=== PATIENT | female | born 1960 | race Caucasian/White ===

== ENCOUNTER 2017-01-12 23:03 | Observation (INO) | payer BC ==
[2017-01-13] MEDS ORDERED: Diltiazem IV* 5 MG/ML 5 ML VIAL (for loading dose/IV Push) (25 MG) IV PUSH ONE (00:26)
[2017-01-13] MEDS ORDERED: Diltiazem IV VIAL* 125 MG in D5W 100 ML BAG* 100 ML IV ONE (00:28)
[2017-01-13] MEDS ORDERED: Diltiazem DRIP* 100 MG/100 ML ADDV.BAG IVPB ONE (00:55)
[2017-01-13] MEDS: NS 0.9% 1000 ML* 1,000 ML IV ONE ×2 (00:59→01:34)
[2017-01-13 01:10] LABS: Hematocrit 42 % (35-47); Hemoglobin 14.2 g/dl (12.0-16.0); Mean Corpuscular HGB Conc 34 g/dl (31-36); Mean Corpuscular Hemoglobin 29 pg (27-31); Mean Corpuscular Volume 87 fL (80-97); Mean Platelet Volume 9 um3 (7.4-10.4); Red Blood Count 4.85 10^6/ul (4.0-5.4); Red Cell Distribution Width 14 % (10.5-15); White Blood Count 6.6 10^3/ul (3.5-10.8)
[2017-01-13 01:22] LABS: Albumin 4.1 g/dL (3.2-5.2); BUN/Creatinine Ratio 29.9 (8-20); Calcium 9.1 mg/dL (8.6-10.3); EGFR African American 86.9 (>60); EGFR Non-African American 67.6 (>60); Globulin 2.7 g/dL (2-4); Magnesium 2.2 mg/dL (1.9-2.7); Potassium 3.8 mmol/L (3.5-5.0); Total Bilirubin 0.5 mg/dL (0.2-1.0); Total Protein 6.8 g/dL (6.4-8.9)
[2017-01-13] MEDS ORDERED: Aspirin Low Dose CHEW TAB* 81 MG PO ONE (01:27)
[2017-01-13] MEDS ORDERED: Aspirin Low Dose CHEW TAB* 81 MG ONE (01:28)
[2017-01-13 01:32] LABS: TSH (Thyroid Stimulating Horm) 0.24 mcIU/mL (0.34-5.60)
[2017-01-13] MEDS ORDERED: NS 0.9% 1000 ML* 1,000 ML IV ONE (01:39)
[2017-01-13] MEDS ORDERED: Amiodarone 360 MG IVPREMIX* 360 MG/200 ML BAG IV ONE ×2 (01:40→08:46)
[2017-01-13] MEDS ORDERED: Amiodarone 150 MG IVPREMIX* 150 MG/100 ML BAG IV ONE (01:40)
[2017-01-13] MEDS: NS 0.9% 1000 ML* 1,000 ML IV SCH ×2 (02:33→15:04)
[2017-01-13] MEDS: Enoxaparin(*) 80 MG/0.8 ML SYR SUBCUT SCH ×2 (03:03→15:09)
[2017-01-13] MEDS: Levothyroxine TAB* 100 MCG TAB PO SCH (06:02)
--- NOTE | 2017-01-13 07:50 | RAD ---
INDICATION: Short of breath. Pneumonia. COMPARISON: November 28, 2012 TECHNIQUE: An AP portable view obtained at 0033 hours is submitted. FINDINGS: Bones/Soft Tissues: There are no acute bony findings. Cardiomediastinal: The cardiomediastinal silhouette is normal. Lungs: There are no infiltrates. Pleura: There are no pleural effusions. Other: None IMPRESSION: NO ACTIVE DISEASE.
--- NOTE | 2017-01-13 07:56 | ED ---
Oswald Mercado Rebecca, scribed for Edwin Paige MD on 01/13/17 at 0022 . Palpitations / Dysrhythmia - HPI Summary HPI Summary: Pt is a 56 y/o F who presents to ED c/o palpitations. Sx began tonight at approximately 2220 while cleaning and are characterized as fast. Sx aggravated and alleviated by nothing. Additionally c/o lightheadedness that has been present for multiple years and worsened yesterday. Denies CP, SOB, fever, chills. Negative LOC. Reports prior similar episodes of symptoms, though she never attributed it to A Fib. PMHx mitral valve leak. Has an echocardiogram done annually by Dr. Liriano - last one was in February (10 months ago). - History of Current Complaint Chief Complaint: EDDysrhythmPalp Time Seen by Provider: 01/13/17 00:13 Hx Obtained From: Patient Onset/Duration: Still Present Character: Fast Aggravating: Nothing Alleviating: Nothing Associated Signs & Symptoms: Lightheadedness Related History: Similar Episode/Dx as - Prior instances of symptoms without calling it a Fib - Allergy/Home Medications Allergies/Adverse Reactions: Allergies Allergy/AdvReac Type Severity Reaction Status Date / Time Ampicillin Allergy Intermediate See Comment Verified 03/19/15 09:28 Clindamycin AdvReac Mild Diarrhea Verified 03/19/15 09:28 PMH/Surg Hx/FS Hx/Imm Hx Endocrine/Hematology History: Reports: Hx Thyroid Disease Denies: Hx Diabetes, Hx Systemic Lupus Erythematosus Cardiovascular History: Reports: Hx Hypercholesterolemia, Hx Hypertension - NOT ON MEDICATION, Hx Valvular Heart Disease - mitral valve disease., Other Cardiovascular Problems/Disorders - mitral valve leak Denies: Hx Angina, Hx Congestive Heart Failure, Hx Coronary Artery Disease, Hx Myocardial Infarction, Hx Pacemaker/ICD Respiratory History: Reports: Hx Sleep Apnea - SNORES THINKS SHE HAS SLEEP APNEA -NO DX.MADE YET Denies: Hx Asthma, Hx Chronic Obstructive Pulmonary Disease (COPD) Comment Only: Other Respiratory Problems/Disorders - VITRAL VALVE LEAK GI History: Reports: Hx Hiatal Hernia Denies: Hx Ulcer History: Reports: Hx Kidney Infection - AGE 19, Other Problems/Disorders - Pain with urination Denies: Hx Dialysis, Hx Renal Disease Musculoskeletal History: Reports: Other Musculoskeletal History - Back pain Denies: Hx Rheumatoid Arthritis Sensory History: Reports: Hx Contacts or Glasses Denies: Hx Hearing Aid Opthamlomology History: Reports: Hx Contacts or Glasses Psychiatric History: Denies: Hx Panic Disorder - Cancer History Hx Chemotherapy: No - Surgical History Surgery Procedure, Year, and Place: left ovary removed, appY;2 c-sections; VASCULAR - Lt LEG; AT AGE 5 UMBILICAL LESIONS THAT TWISTED HER SMALL INTESTINES. Hx Anesthesia Reactions: No - Immunization History Date of Tetanus Vaccine: Unk Date of Influenza Vaccine: Unk Infectious Disease History: No Infectious Disease History: Denies: Hx Clostridium Difficile, Hx Hepatitis, Hx Human Immunodeficiency Virus (HIV), Hx of Known/Suspected MRSA, Traveled Outside the [place] in Last 30 Days - Family History Known Family History: Positive: Other - Mitral valve leak (mother) - Social History Alcohol Use: None Substance Use Type: Reports: None Smoking Status (MU): Never Smoked Tobacco Review of Systems Negative: Fever, Chills Positive: Palpitations. Negative: Chest Pain Negative: Shortness Of Breath Neurological: Other - NEGATIVE: LOC All Other Systems Reviewed And Are Negative: Yes Physical Exam - Summary Physical Exam Summary: The patient is well-nourished in no acute distress and in no acute pain. The skin is warm and dry and skin color reflects adequate perfusion. HEENT: The head is normocephalic and atraumatic. The pupils are equal and reactive. The conjunctivae are clear and without drainage. Nares are patent and without drainage. Mouth reveals moist mucous membranes and the throat is without erythema and exudate. The external ears are intact. The ear canals are patent and without drainage. The tympanic membranes are intact. Neck is supple with full range of motion and non-tender. Respiratory: Chest is non-tender. Lungs are clear to auscultation and breath sounds are symmetrical and equal. Cardiovascular: Hear is tachycardic with an irregular rhythm. There is no murmur or rub auscultated. There is no peripheral edema and pulses are symmetrical and equal. Abdomen: The abdomen is soft and non-tender. There are normal bowel sounds heard in all four quadrants and there is no organomegaly palpated. Musculoskeletal: She has some CVA tenderness bilaterally. Extremities are non- tender with full range of motion. There is good capillary refill. There is no peripheral edema or calf tenderness elicited. Neurological: Patient is alert and oriented to person, place and time. The patient has symmetrical motor strength in all four extremities. Deep tendon reflexes are symmetrical and equal in all four extremities. Psychiatric: The patient has an appropriate affect and does not exhibit any anxiety or depression. Triage Information Reviewed: Yes Vital Signs On Initial Exam: Initial Vitals Temp Pulse Resp BP Pulse Ox 98.3 F 79 20 116/83 98 01/12/17 23:17 01/12/17 23:17 01/12/17 23:17 01/12/17 23:17 01/12/17 23:17 Vital Signs Reviewed: Yes Diagnostics - Vital Signs Vital Signs Temp Pulse Resp BP Pulse Ox 01/12/17 23:17 98.3 F 79 20 116/83 98 - Laboratory Lab Results: Lab Results 01/13/17 01/13/17 01/13/17 Range/Units 00:50 00:50 00:50 WBC 6.6 (3.5-10.8) 10^3/ul RBC 4.85 (4.0-5.4) 10^6/ul Hgb 14.2 (12.0-16.0) g/dl Hct 42 (35-47) % MCV 87 (80-97) fL MCH 29 (27-31) pg MCHC 34 (31-36) g/dl RDW 14 (10.5-15) % Plt Count 176 (150-450) 10^3/ul MPV 9 (7.4-10.4) um3 Neut % (Auto) 50.5 (38-83) % Lymph % (Auto) 34.3 (25-47) % Mcmullen % (Auto) 13.0 H (1-9) % Eos % (Auto) 1.8 (0-6) % Baso % (Auto) 0.4 (0-2) % Absolute Neuts (auto) 3.3 (1.5-7.7) 10^3/ul Absolute Lymphs (auto) 2.3 (1.0-4.8) 10^3/ul Absolute Monos (auto) 0.9 H (0-0.8) 10^3/ul Absolute Eos (auto) 0.1 (0-0.6) 10^3/ul Absolute Basos (auto) 0 (0-0.2) 10^3/ul Absolute Nucleated RBC 0 10^3/ul Nucleated RBC % 0 INR (Anticoag Therapy) (0.89-1.11) APTT (26.0-36.3) seconds Sodium 137 (133-145) mmol/L Potassium 3.8 (3.5-5.0) mmol/L Chloride 104 (101-111) mmol/L Carbon Dioxide 26 (22-32) mmol/L Anion Gap 7 (2-11) mmol/L BUN 26 H (6-24) mg/dL Creatinine 0.87 (0.51-0.95) mg/dL Est GFR ( Amer) 86.9 (>60) Est GFR (Non-Af Amer) 67.6 (>60) BUN/Creatinine Ratio 29.9 H (8-20) Glucose 101 H (70-100) mg/dL Lactic Acid 0.7 (0.5-2.0) mmol/L Calcium 9.1 (8.6-10.3) mg/dL Magnesium 2.2 (1.9-2.7) mg/dL Total Bilirubin 0.50 (0.2-1.0) mg/dL AST 14 (13-39) U/L ALT 14 (7-52) U/L Alkaline Phosphatase 68 (34-104) U/L Troponin I 0.00 (<0.04) ng/mL B-Natriuretic Peptide ( - 100) pg/mL Total Protein 6.8 (6.4-8.9) g/dL Albumin 4.1 (3.2-5.2) g/dL Globulin 2.7 (2-4) g/dL Albumin/Globulin Ratio 1.5 (1-3) TSH 0.24 L (0.34-5.60) mcIU/mL 01/13/17 01/13/17 Range/Units 00:50 00:50 WBC (3.5-10.8) 10^3/ul RBC (4.0-5.4) 10^6/ul Hgb (12.0-16.0) g/dl Hct (35-47) % MCV (80-97) fL MCH (27-31) pg MCHC (31-36) g/dl RDW (10.5-15) % Plt Count (150-450) 10^3/ul MPV (7.4-10.4) um3 Neut % (Auto) (38-83) % Lymph % (Auto) (25-47) % Mcmullen % (Auto) (1-9) % Eos % (Auto) (0-6) % Baso % (Auto) (0-2) % Absolute Neuts (auto) (1.5-7.7) 10^3/ul Absolute Lymphs (auto) (1.0-4.8) 10^3/ul Absolute Monos (auto) (0-0.8) 10^3/ul Absolute Eos (auto) (0-0.6) 10^3/ul Absolute Basos (auto) (0-0.2) 10^3/ul Absolute Nucleated RBC 10^3/ul Nucleated RBC % INR (Anticoag Therapy) 0.95 (0.89-1.11) APTT 28.4 (26.0-36.3) seconds Sodium (133-145) mmol/L Potassium (3.5-5.0) mmol/L Chloride (101-111) mmol/L Carbon Dioxide (22-32) mmol/L Anion Gap (2-11) mmol/L BUN (6-24) mg/dL Creatinine (0.51-0.95) mg/dL Est GFR ( Amer) (>60) Est GFR (Non-Af Amer) (>60) BUN/Creatinine Ratio (8-20) Glucose (70-100) mg/dL Lactic Acid (0.5-2.0) mmol/L Calcium (8.6-10.3) mg/dL Magnesium (1.9-2.7) mg/dL Total Bilirubin (0.2-1.0) mg/dL AST (13-39) U/L ALT (7-52) U/L Alkaline Phosphatase (34-104) U/L Troponin I (<0.04) ng/mL B-Natriuretic Peptide 43 ( - 100) pg/mL Total Protein (6.4-8.9) g/dL Albumin (3.2-5.2) g/dL Globulin (2-4) g/dL Albumin/Globulin Ratio (1-3) TSH (0.34-5.60) mcIU/mL Result Diagrams: 01/13/17 00:50 01/13/17 00:50 Lab Statement: Any lab studies that have been ordered have been reviewed, and results considered in the medical decision making process. - Radiology CXR Xray Interpretation: No Acute Changes - No abnormality, effusions, failure or PNA. Heart size is normal. Radiology Interpretation Completed By: ED Physician - EKG 2325 Cardiac Rate: Tachycardia - 164 bpm EKG Rhythm: Atrial Fibrillation - with RVR ST Segment: Non-Specific - ST depressions 0127 Cardiac Rate: Tachycardia - 146 EKG Rhythm: Atrial Fibrillation - Rate 146 EKG Interpretation: Normal axis, no STEMI EKG Comparison: Other - ST depressions have improved from prior EKG this visit and there is a decreas in rate Re-Evaluation - Re-Evaluation First Eval Re-Evaluation Time: 01:26 Change: Worse Comment: Pt now c/o CP. She will be given ASA and have an EKG done. Course/Dx - Course Assessment/Plan: Pt is a 56 y/o F who presents to ED c/o palpitations. Sx began tonight at approximately 2220 while cleaning and are characterized as fast. Sx aggravated and alleviated by nothing. Additionally c/o lightheadedness that has been present for multiple years and worsened yesterday. Denies CP, SOB, fever, chills. Negative LOC. Reports prior similar episodes of symptoms, though she never attributed it to A Fib. PMHx mitral valve leak. Has an echocardiogram done annually by Dr. Liriano - last one was in February (10 months ago). CXR reveals no acute findings. Initial EKG is A Fib with RVR at a rate of 164 bpm. A follow up EKG is improved ST depressions and A Fib at a decreased rate of 146 bpm. In the ED course, pt received Amiodarone, ASA, Cardizem, Diltiaze, and fluids which improved sx. Discussed care of pt with Dr. Leavitt who accepts pt for admission. Pt will be admitted with Dx of A Fib with RVR and CP. She understands and agrees. 45 minutes of critical care time. - Diagnoses Differential Diagnosis/HQI/PQRI: Positive: Cardiomyopathy, Hypokalemia, Paroxymal SVT, Other - atrial fibrillation with rapid ventricular response Provider Diagnoses: Atrial fibrillation with RVR, Chest pain - Physician Notifications Discussed Care Of Patient With: Britta Leavitt Time Discussed With Above Provider: 01:35 Instructed by Provider To: Other - Accepts pt for admission - Critical Care Time Critical Care Time: 30-74 min - 45 minutes Discharge - Discharge Plan Condition: Good Disposition: ADMITTED TO [facility] The documentation as recorded by the Oswald banks Rebecca accurately reflects the service I personally performed and the decisions made by me, Edwin Paige MD.
[2017-01-13 08:57] LABS: Free T4 1.05 ng/dL (0.61-1.12)
[2017-01-13] MEDS ORDERED: Amiodarone 360 MG IVPREMIX* 360 MG/200 ML BAG IV SCH (09:00)
[2017-01-13] MEDS ORDERED: Levothyroxine TAB* 100 MCG TAB PO SCH (09:00)
[2017-01-13] MEDS ORDERED: Metoprolol Tartrate IV* 1 MG/ML 5 ML VIAL IV PRN (09:23)
--- NOTE | 2017-01-13 09:24 | PN ---
Subjective Date of Service: 01/13/17 Interval History: Patient seen this morning. Reports feeling "OK". No further palpitations. Denies having any chest pain at any point. Has seen Dr. Liriano in the past for her mitral regurgitation. Family History: Unchanged from Admission Social History: Unchanged from Admission Past Medical History: Unchanged from Admission Objective Active Medications: Acetaminophen (Tylenol Tab*) 650 mg PO Q4H PRN Enoxaparin Sodium (Lovenox(*)) 70 mg SUBCUT Q12H [facility] Sodium Chloride (Ns 0.9% 1000 Ml*) 1,000 mls @ 75 mls/hr IV PER RATE ELSA Amiodarone HCl (Nexterone 360 Mg/200 Ml Ivpremix*) 360 mg in 200 mls @ 16.666 mls/hr IV Q12H [facility] Levothyroxine Sodium (Synthroid Tab*) 100 mcg PO DAILY@0600 [facility] Vital Signs 01/13/17 01/13/17 01/13/17 01:50 02:00 02:06 Temperature 101.5 F 98.3 F Pulse Rate 135 Respiratory 21 11 16 Rate Blood Pressure 107/75 107/86 (mmHg) O2 Sat by Pulse 97 Oximetry 01/13/17 01/13/17 01/13/17 02:46 03:00 03:01 Temperature Pulse Rate Respiratory 10 19 13 Rate Blood Pressure 107/86 102/78 (mmHg) O2 Sat by Pulse 95 97 98 Oximetry 01/13/17 01/13/17 01/13/17 08:01 08:30 08:42 Temperature Pulse Rate 77 110 98 Respiratory 11 18 16 Rate Blood Pressure 94/80 (mmHg) O2 Sat by Pulse 100 96 98 Oximetry Oxygen Devices in Use Now: None Appearance: Middle-aged, F, laying in bed in NAD Eyes: No Scleral Icterus Ears/Nose/Mouth/Throat: - - Dry MM Neck: NL Appearance and Movements; NL JVP, Trachea Midline Respiratory: Symmetrical Chest Expansion and Respiratory Effort, Clear to Auscultation Cardiovascular: - - IRIR, tachycardia Abdominal: NL Sounds; No Tenderness; No Distention Lymphatic: No Cervical Adenopathy Extremities: No Edema Skin: No Rash or Ulcers Neurological: Alert and Oriented x 3 Result Diagrams: 01/13/17 00:50 01/13/17 00:50 Microbiology and Other Data: Microbiology 01/13/17 03:08 Nasal Screen MRSA (PCR)(ANN-MARIE) - Final Nasal Mrsa Negative Assess/Plan/Problems-Billing Assessment: New onset AFib with RVR in a 56 yo F with hx of mitral regurgitation, hypothyroidism - Patient Problems (1) Atrial fibrillation Current Visit: Yes Comment: BPs dropped with Diltiazem so patient started on Amiodarone gtt overnight. Spoke with Cardiology who would prefer another agent with her thyroid history so will switch to PO Metoprolol 25 mg q8h with 5 mg IV prn available. TSH low, synthroid dose lowered. Continue therapeutic Lovenox. Cardiology to evaluate. (2) Hypothyroidism Current Visit: Yes Comment: TSH low on admission. Synthroid decreased to 100 mcg daily. (3) DVT prophylaxis Current Visit: Yes Comment: Lovenox
[2017-01-13 09:25] LABS: Hematocrit 38 % (35-47); Hemoglobin 12.5 g/dl (12.0-16.0); Mean Corpuscular HGB Conc 33 g/dl (31-36); Mean Corpuscular Hemoglobin 29 pg (27-31); Mean Corpuscular Volume 88 fL (80-97); Mean Platelet Volume 10 um3 (7.4-10.4); Red Blood Count 4.28 10^6/ul (4.0-5.4); Red Cell Distribution Width 14 % (10.5-15); White Blood Count 5.4 10^3/ul (3.5-10.8)
[2017-01-13 09:26] LABS: BUN/Creatinine Ratio 26.8 (8-20); Calcium 7.9 mg/dL (8.6-10.3); EGFR African American 144.5 (>60); EGFR Non-African American 112.4 (>60); Potassium 3.6 mmol/L (3.5-5.0)
[2017-01-13 09:27] LABS: Troponin I 0.01 ng/mL (<0.04)
[2017-01-13] MEDS: Metoprolol Tartrate TAB* 25 MG PO SCH ×2 (10:06→17:29)
[2017-01-13] MEDS: Acetaminophen TAB* 325 MG PO PRN ×2 (10:06→22:41)
[2017-01-13 10:18] LABS: Total T3 0.89 ng/mL (0.87-1.78)
--- NOTE | 2017-01-13 12:50 | HP ---
CC: Dr. Liriano; Ashley Cr MD * HISTORY AND PHYSICAL: DATE OF ADMISSION: 01/13/17 PRIMACY CARE PHYSICIAN: Ashley Cr MD. CLASSIFIED ADVERTISING SUPERVISOR: Dr. Liriano. CHIEF COMPLAINT: Palpitations. HISTORY OF PRESENT ILLNESS: Rosalie Vásquez is a 56-year-old female with history of mitral valve regurgitation who presents complaining of developing palpitations at 10 p.m. on 01/12/17. The patient was noted in atrial fibrillation with rapid ventricular response. Initially, she was treated with a bolus of Cardizem that caused her to be hypotensive. She is now being started on amiodarone drip and placed in the intensive care unit for further monitoring. The patient stated that since she had been taking care of her ill , she had not been sleeping well and she is tired and forgetful during the daytime. She stated that she had noticed in the past intermittent palpitations, but they never lasted longer than several minutes. Today, together with palpitations and rapid heartbeat, the patient denied any chest pain or shortness of breath. PAST MEDICAL HISTORY: 1. History of mitral valve prolapse and mitral regurgitation due to rheumatic heart disease. The patient's echocardiogram noted in May 2016 showed the same mitral regurgitation as in 2013. 2. History of left foot varicose vein surgery in April 2012. 3. History of hypothyroidism. 4. History of frequent UTIs as a child. 5. History of left oophorectomy due to infection in . 6. Appendectomy. 7. History of chronic microscopic hematuria. 8. Obstructive sleep apnea. MEDICATIONS: Include levothyroxine 125 mcg daily alternating with 112 mcg daily. ALLERGIES: Possibility of AMPICILLIN causing hair loss and the patient was diagnosed with alopecia after that and she is not sure if in fact she is allergic to AMPICILLIN. FAMILY HISTORY: Positive for mother with history of heart disease and kidney problems who at the age of 56. Father at the age of 64 secondary to brain tumor. SOCIAL HISTORY: The patient denies any tobacco, alcohol, or drug use. 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 She names her as her primary surrogate. REVIEW OF SYSTEMS: Please see history of present illness. In addition to the above mentioned, the patient stated that she had been having problems with leg edema, worse so when she is standing up for a longer period of time. In addition to the above mentioned, the patient also had history of memory issues and had a brain MRI within the past several months that was unremarkable. All the remaining 14 systems were reviewed with the patient and were otherwise negative. When questioned about alcohol use, the patient stated that she does not use alcohol, but she drinks a cup and a half of coffee a day. PHYSICAL EXAMINATION GENERAL: The patient is a very pleasant 56-year-old female, who is in no acute distress. Alert, awake, and oriented x3. VITAL SIGNS: Blood pressure 106/77, heart rate of 109 and irregularly irregular , respiratory rate 15, oxygen saturation % on room air, temperature of 98.3. HEENT: Head atraumatic, normocephalic. Eyes: Pupils equal, and reactive to light and accommodation. Oropharynx clear. Mucosa moist. NECK: Supple. No JVD. No bruits bilaterally. RESPIRATORY: Clear to auscultation bilaterally. CARDIOVASCULAR: Irregularly irregular rhythm with no murmurs. ABDOMEN: Soft and nontender. Bowel sounds present in all 4 quadrants. EXTREMITIES: There is trace pedal edema. Pulses +2 bilaterally. No clubbing or cyanosis. SKIN: On evaluation of the skin, no ecchymotic areas or rashes noted. NEUROLOGIC: Speech clear. Cranial nerves II through XII grossly intact. Motor strength is 5/5 bilaterally. LABORATORY DATA: Showed white blood cell count of 6.6, hemoglobin of 14.2, hematocrit 42, and platelets of 176,000. Liver function is unremarkable. Sodium was 137, potassium 3.8, chloride 104, carbon dioxide 26, BUN 26, creatinine 0.87. The patient's troponin was noted to be 0. TSH was noted to be 0.24. Portable chest x-ray read by myself prior to the official radiologist's report shows no acute cardiopulmonary abnormality. The patient's EKG showed atrial fibrillation with heart rate 146 beats per minute with no significant ST changes. ASSESSMENT AND PLAN: 1. Atrial fibrillation with rapid ventricular response, which is new onset. At this point, from review of medical records, the patient had a cardiac stress test obtained in February 2016, which was unremarkable, negative for ischemia. At this point due to hypotensive response to diltiazem, the patient is going to be placed on amiodarone drip and placed in intensive care unit for further monitoring on a drip. I will place the patient n.p.o. In case she does not convert, she may need to have cardioversion in the morning. I will also start the patient on Lovenox at 1 mg/kg every 12 hours for anticoagulation while in atrial fibrillation. 2. In regards to the patient's hypothyroidism, the patient stated that she is supposed to alternate the dose of 125 mcg with 112 mcg, but she forgets frequently which days she took which dose and she could have been taking 125 mcg continuously. At this point, due to her low TSH and now atrial fibrillation , the patient's Synthroid is going to be adjusted to a level of 100 mcg daily. It is recommended for the patient to have a TSH repeated in 4 to 6 weeks. 3. In regards to the patient's DVT prophylaxis, the patient is going to be placed on heparin subcutaneously. 4. The patient's code status is full. TIME SPENT: Approximately 62 minutes were spent on the admission of this patient. [id number]/[facility] #: [id number] [place]
[2017-01-13] MEDS ORDERED: Ibuprofen TAB* 200 MG PO ONE (15:15)
--- NOTE | 2017-01-13 17:29 | CONS ---
CC: Dr. Cr; Dr. Liriano; Dr. Kaba CARDIOLOGY CONSULTATION: DATE OF CONSULT: 01/13/17 HISTORY OF PRESENT ILLNESS: I was asked by hospitalist service to see this 56-year- old female marino ent who presented to the hospital with tachycardia. She was found to be in atrial fibrillation with a rapid ventricular response. The patient does have extensive history including history of hypothy roidism, she is on thyroid medication; history of mitral valve disease with history of mitral stenos is in the past and mitral insufficiency; history of obstructive sleep apnea; malaise; fatigue. Ther e is no history of myocardial infarction. No history of congestive heart failure. No history of an molly. In the hospital, she was found to have a TSH that is low, indicative of hyperthyroid state, a nd medication has been adjusted. She was started on beta-ulises treatment. At one point, she recei inocente 1 dose of amiodarone and that was discontinued which I agree given her thyroid disease. She has headache. She has a chronic back pain syndrome. She said yesterday she felt tachycardic and not g ood. No active chest pain. No shortness of breath. No orthopnea. No PNDs. No dizziness. No syn cope. No fever. No chills. No skin rash. No tremors. No hematochezia. No swelling in the lower extremities is appreciated. She is currently in the intensive care unit. After initiating beta- b locker treatment, heart rate is about 100. She is in atrial fibrillation. She is currently having headaches at the present time. Other evaluation, she had a stress test in October 2015. She had no inducible ischemia by EKG. No inc rease in MR with stress. No increase in PA pressure. PAST MEDICAL HISTORY AND PAST SURGICAL HISTORY: History of appendicectomy and removal of benign cys t of the ovary, history of intestinal blockage when she was 5 years old, history of varicose vein montelongo rgery, history of mitral valve disease, hypothyroidism, sleep apnea. She followed up with Dr. Esteban armendariz. MEDICATIONS: As outpatient include: 1. Levothyroxine 112 mcg daily. 2. She is also on aspirin. 3. Ibuprofen p.r.n. Medications as an inpatient include: 1. Tylenol 650 mg p.o. q.4 hours p.r.n. 2. Lovenox 70 mg subcu q.12 hours. 3. Synthroid 100 mcg daily. 4. Lopressor IV 5 mg IV q.6 hours and Lopressor 25 mg p.o. q.8 hours. ALLERGIES: She is allergic to CLINDAMYCIN. FAMILY HISTORY: No family history of premature coronary artery disease. SOCIAL HISTORY: She gives no history of smoking. Drinks socially. No history of illicit drug use. She is . Lives with . She used to smoke, she quit at the age of 29. She drinks co ffee 1 cup in the morning. PHYSICAL EXAM: On exam, she is awake, alert, and oriented. She is having headache at the present t christine. She is not in acute distress. Vitals: Her blood pressure is about 105 systolic, pulse 100, s he is in AFib. She is afebrile. Head and Neck Exam: Normocephalic, atraumatic. Head, ears, nose, and throat essentially benign. Neck: Supple. JVP is not elevated. No carotid bruit. No masses i n the neck is appreciated. Chest: Clear to auscultation. No rales, no wheeze. No added sounds ap preciated. Heart: Normal, but irregularly irregular. S1, S2. No added sounds, no gallops, no rub s. Abdomen: Benign, soft, positive bowel sounds. Extremities: No edema, no cyanosis, no clubbing. Skin exam is normal. Psych: Normal affect and mood. 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 DIAGNOSTIC STUDIES/LAB DATA: Her labs showed the following, white blood cell 5.4, hemoglobin 12.5, hematocrit 38, platelets 152. INR 0.95. Sodium 138, potassium 3.6 and this needs to be corrected, chloride 110, total CO2 25, BUN 15, creatinine 0.56, magnesium 2.2. TSH 0.24, but her total T3 and free T4 were normal. Troponin 0.01 x2. BNP was only 43. Her EKG showed her to be in atrial fibril lation as a baseline rhythm. There is nonspecific T abnormality. This is an EKG from today with a heart rate of 116 beats per minute. Her chest x-ray was reported to be no active disease. IMPRESSION: The patient is a 56-year-old female with: 1. Atrial fibrillation, symptomatic, rapid, of unknown duration, probably recent. 2. 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 3. Hypothyroidism, on medical treatment. 4. TSH is low on recent blood testing, indicative of a hyperthyroid state. 5. Abnormal EKG as described. 6. Sleep apnea, followed up with Dr. Preston. 7. Hypokalemia. PLAN: The patient is currently in the intensive care unit. I had a lengthy discussion with the edison agrawal. I also discussed this patient further with Dr. Liriano today, her primary technical cable jointer. I th ink at the present time, rate controlling with beta-ulises is important, keeping her well hydrated is important, correcting her electrolyte keeping potassium more than 4 and magnesium more than 2 is important, correcting her thyroid status is important. We will obtain a transthoracic echo and foll ow up on her mitral valve disease and left ventricular systolic function. We will see how she will respond in the next 24 hours or so. A transesophageal echocardiography guided cardioversion might b e helpful if she stays in atrial fibrillation, which I ordered if she is still in atrial fibrillatio n. Stress test, she just had one in 2016. She is chest pain free. She had no acute ST- T changes. Her troponins are negative. I do not think this is mandatory at the present time. I answered all her concerns and questions up to her satisfaction. Thank you very much for asking us to participate in the care of this patient. [id number]/[facility] #: [id number]
[2017-01-13] MEDS ORDERED: Potassium Chlor TAB* 20 MEQ TAB.ER PO ONE (17:52)
[2017-01-13] MEDS ORDERED: Ibuprofen TAB* 400 MG PO PRN (17:54)
[2017-01-14] MEDS: Metoprolol Tartrate TAB* 25 MG PO SCH ×2 (03:16→10:32)
[2017-01-14] MEDS: Enoxaparin(*) 80 MG/0.8 ML SYR SUBCUT SCH (03:16)
[2017-01-14] MEDS: NS 0.9% 1000 ML* 1,000 ML IV SCH (04:26)
[2017-01-14 06:13] LABS: EGFR African American 147.6 (>60); EGFR Non-African American 114.8 (>60)
[2017-01-14] MEDS: Levothyroxine TAB* 100 MCG TAB PO SCH (07:13)
[2017-01-14] MEDS ORDERED: Docusate CAP* 100 MG PO PRN (09:23)
[2017-01-14] MEDS ORDERED: Senna TAB PO PRN (09:23)
[2017-01-14] MEDS ORDERED: Polyethylene Glycol 3350* 17 GM PACKET PO PRN (09:23)
--- NOTE | 2017-01-14 09:59 | PN ---
Subjective Date of Service: 01/14/17 - CC: palpitations Interval History: The patient feels much better post cardioverion (spontaneous). No awareness of heart beat. The patient in hind sight thinks she may have been in or in/out of afib for up to a week. She has noted months of leg edema, very bad with travel as well. Medications Active Medications: Acetaminophen (Tylenol Tab*) 650 mg PO Q4H PRN PRN Reason: FEVER/PAIN Last Admin: 01/13/17 22:41 Dose: 650 mg Docusate Sodium (Colace Cap*) 100 mg PO BID PRN PRN Reason: CONSTIPATION Enoxaparin Sodium (Lovenox(*)) 70 mg SUBCUT Q12H [facility] Last Admin: 01/14/17 03:16 Dose: 70 mg Sodium Chloride (Ns 0.9% 1000 Ml*) 1,000 mls @ 75 mls/hr IV PER RATE [facility] Last Admin: 01/14/17 04:26 Dose: 75 mls/hr Ibuprofen (Motrin Tab*) 400 mg PO ONCE PRN PRN Reason: HEADACHE Stop: 01/14/17 17:53 Last Admin: 01/13/17 18:54 Dose: 400 mg Levothyroxine Sodium (Synthroid Tab*) 100 mcg PO DAILY@0600 [facility] Last Admin: 01/14/17 07:13 Dose: 100 mcg Metoprolol Tartrate (Lopressor Tab*) 25 mg PO Q8H [facility] Last Admin: 01/14/17 03:16 Dose: 25 mg Metoprolol Tartrate (Lopressor Iv*) 5 mg IV Q6H PRN PRN Reason: Sustained HR > 130 Polyethylene Glycol/Electrolytes (Miralax*) 17 gm PO DAILY PRN PRN Reason: CONSTIPATION Senna (Senokot Tab*) 1 tab PO DAILY PRN PRN Reason: CONSTIPATION Objective Vital Signs: Temp Pulse Resp BP Pulse Ox 97.4 F 64 16 110/70 98 01/14/17 08:00 01/14/17 08:01 01/14/17 08:01 01/14/17 08:00 01/14/17 08:01 Oxygen Devices in Use Now: None Appearance: middle aged woman, lying flat, comfortable. Eyes: No Scleral Icterus, PERRLA Ears/Nose/Mouth/Throat: Clear Oropharnyx, Mucous Membranes Moist Neck: NL Appearance and Movements; NL JVP, Trachea Midline Respiratory: Clear to Auscultation Cardiovascular: NL Sounds; No Murmurs; No JVD, RRR Abdominal: NL Sounds; No Tenderness; No Distention, No Hepatosplenomegaly Extremities: No Edema, No Clubbing, Cyanosis Skin: No Rash or Ulcers Neurological: Alert and Oriented x 3, NL Muscle Strength and Tone Lines/Tubes/Other Access: Clean, Dry and Intact Peripheral IV Laboratory Results: 01/13/17 08:58 01/14/17 05:47 INR (Anticoag Therapy) 0.95 (0.89-1.11) 01/13/17 00:50 APTT 28.4 seconds (26.0-36.3) 01/13/17 00:50 Total Bilirubin 0.50 mg/dL (0.2-1.0) 01/13/17 00:50 AST 14 U/L (13-39) 01/13/17 00:50 ALT 14 U/L (7-52) 01/13/17 00:50 Alkaline Phosphatase 68 U/L (34-104) 01/13/17 00:50 B-Natriuretic Peptide 43 pg/mL (-100) 01/13/17 00:50 Total Protein 6.8 g/dL (6.4-8.9) 01/13/17 00:50 Albumin 4.1 g/dL (3.2-5.2) 01/13/17 00:50 Globulin 2.7 g/dL (2-4) 01/13/17 00:50 Albumin/Globulin Ratio 1.5 (1-3) 01/13/17 00:50 TSH 0.24 mcIU/mL (0.34-5.60) L 01/13/17 00:50 01/13/17 01/13/17 08:58 11:00 Troponin I 0.01 0.01 Diagnostic Imaging: Echo this week: mild to moderate MR, closer to moderat, no MS, normal LV systolic function. EKG Data: Monitor: NSR 60's, ECG pending. Assessment/Plan 56 yo female with mitral valve disease admitted with afib and hyperthyroid likely related to inadvertent non compliance of thyroid replacement. Now in sinus rhythm and feeling back to normal. AFIB: Paroysmal with hyperthyroid and MR Needs anticoagulation, as MR only now I recommend NOAC. Continue metoprolol 25 BID LE edema: hx venous insufficiency and stripping. I explained this could be related to afib but venous insufficiency is contributing or could be the main etiology. I reinforced antigravity and moving with travel. Option of non urgent follow up with vein specialists. MR: Can get a follow up echo as out patient in NSR. OK for discharge as the patient requests. Can f/u with me in 1-4 weeks.
--- NOTE | 2017-01-14 10:06 | DCNOTE ---
Patient converted to NSR yesterday afternoon. Patient see this morning. Feels well, no palpitations or chest pain. Hungry. On exam, RRR, s1 and s2 present, no m/g/r, lungs CTA B/L, no w/r/r, abd soft, NTND, BS+ Plan to discharge on Xarelto and BID metoprolol. Will need repeat TFTs in 4-6 weeks.
[2017-01-14 11:17] VITALS: BP 105/81
--- NOTE | 2017-01-15 08:34 | DS ---
CC: Dr. Cr; Dr. Alysha Liriano, Cardiology DISCHARGE SUMMARY: DATE OF ADMISSION: 01/13/17 DATE OF DISCHARGE: 01/14/17 PCP: Dr. Cr PRINCIPAL DISCHARGE DIAGNOSES: 1. Atrial fibrillation. 2. Low TSH secondary to high Synthroid dose. SECONDARY DIAGNOSES: 1. History of mitral regurgitation. 2. Mitral valve prolapse. 3. Hypothyroidism. DISCHARGE MEDICATION REGIMEN: 1. Metoprolol tartrate 25 mg by mouth 2 times daily. 2. Synthroid 100 mcg by mouth daily. 3. Xarelto 20 mg by mouth daily. STUDIES DONE DURING HOSPITALIZATION: Chest x-ray. Impression: No active disease. Echocardiogram. Conclusion: Left ventricular chamber size is normal. The assessment of diastolic function is nondiagnostic. Unable to estimate left ventricular ejection fraction. Resting rapid AFib, but overall LVEF is probably preserved. The left atrium is mildly dilated. There is mild-to- moderate mitral regurgitation; in the 4-chamber view, it appears moderate. There is mild tricuspid regurgitation. There are changes noted when compared to the previous study done on 05/31/16. LV is now unable to estimate instead of 55% to 60% and MR is stable, TR is now mild instead of trace, AFib is new. CONSULTANTS DURING HOSPITALIZATION: 1. Dr. Kaba, Cardiology. 2. Dr. Liriano, Cardiology. HISTORY OF PRESENT ILLNESS AND HOSPITAL SUMMARY: Please see the full history and physical by Dr. Britta Leavitt for full details. Briefly, Ms. Vásquez is a 56-year- old female, who presented to the hospital with intermittent palpitations. The patient was found to be in atrial fibrillation with RVR. She was initially treated with a bolus of Cardizem that caused her to be hypotensive. She was subsequently started on an amiodarone drip and remained on this overnight. Following day after consultation with Cardiology due to the patient's previous thyroid issues, recommended she be on a beta-ulises instead , amiodarone drip was stopped, and she was placed on metoprolol later that afternoon. The patient converted back to normal sinus rhythm and remained that way. She was initially anticoagulated in the hospital with Lovenox. Of note, the patient was found to have a low TSH of 0.24. As an outpatient, she had been on alternating doses of Synthroid of 125 mcg alternating with 112 mcg. She states she occasionally would forget which day she is supposed to be on and may have been taking them incorrectly. It seems this may have contributed to her AFIb and at this point, the patient's Synthroid dose will be dropped to 100 mcg daily and she can have thyroid function test repeated in 4 to 6 weeks. The patient remained in sinus rhythm overnight into the following day. She will be discharged on oral metoprolol and Xarelto and to follow up with her PCP and Dr. Liriano as an outpatient. TIME SPENT: Total time spent on this discharge was 45 minutes. This is a summary of the hospitalization, please see the full medical record for further details. [id number]/[facility] #: [id number] MTDD
== END 2017-01-14 11:30 | disposition home or self-care (01) ==
LOC: ED 23:03 → ICU 01-13 01:42
PROVIDERS: ADMIT Internal Medicine; ATTEND Hospitalist
DX: I48.91 Unspecified atrial fibrillation (principal); E03.9 Hypothyroidism, unspecified; I05.8 Other rheumatic mitral valve diseases; I05.1 Rheumatic mitral insufficiency; E87.6 Hypokalemia; Z79.01 Long term (current) use of anticoagulants; Z79.899 Other long term (current) drug therapy; R07.9 Chest pain, unspecified; Z88.1 Allergy status to other antibiotic agents
CPT/HCPCS: 36415; 71010; 80048; 80053; 83605; 83735; 83880; 84439; 84443; 84479; 84484; 85025; 85610; 85730; 87641; 93005; 93306; 96365; 96366; 96372; 96375; 99291; A9270-GY; G0378; J0282; J1650

== ENCOUNTER → 2019-07-04 17:46 | Emergency (ER) | payer OTHER ==
--- OUTSIDE RECORDS SUMMARY | 2019-07-04 17:55 | XMS REPORT | Continuity of Care Document ---
:1960 External Reference #:[id number] Author Name Ayan Guerrier NP (transmitted by agent of provider Patsy Ortiz) Address [address], [place] [address] Care Team Providers Name Role Phone Alysha Liriano MD - Cardiovascular Care Team Information Financial Sales Representative [phone] Disease Mirian Smith MD - Internal Medicine Care Team Information Financial Sales Representative Other Physician Practices Care Team Information Financial Sales Representative Unavailable Ashley Cr MD - Internal Care Team Information Financial Sales Representative Medicine Prakash Skinner MD - Surgery Care Team Information Financial Sales Representative Problems Active Problems Provider Date Hypothyroidism Mirian Smith M.D., FACP Onset: 12/12/2012 Mitral valve disorder Mirian Smith M.D., FACSonya Onset: 12/13/2012 Note: Mild to moderate MR Slow transit constipation Ashley Cr M.D. Onset: 07/21/2015 Insomnia Ashley Cr M.D. Onset: 07/21/2015 Difficulty breathing Mel Preston MD Onset: 09/08/2015 Malaise and fatigue Mel Preston MD Onset: 09/08/2015 Obstructive sleep apnea syndrome Mel Preston MD Onset: 10/16/2015 Rheumatic mitral regurgitation Alysha Liriano M.D. Onset: 04/23/2016 Paroxysmal atrial fibrillation Ashley Cr M.D. Onset: 01/14/2017 Social History Type Date Description Comments Sex Unknown Tobacco Use Start: Unknown End: Former Cigarette Smoker 1 12 years Unknown Pack Daily Smoking Status Reviewed: 05/25/19 Former Cigarette Smoker 1 12 years Pack Daily ETOH Use Consumes 2 glasses of wine per week Tobacco Use Start: Unknown End: Patient is a former smoker quit 1989 Unknown Recreational Drug Use Denies Drug Use Exercise Type/Frequency Does not exercise Allergies, Adverse Reactions, Alerts Active Allergies Reaction Severity Comments Date Clindamycin Urticaria Moderate 12/12/2012 Medications Active Medications SIG Qnty Indications Ordering Date Provider Baclofen take 1/2-1 tab 30tabs M54.5 Ayan Guerrier NP 05/25/2019 10mg Tablets every 8 hours as needed for muscle spasm Amoxicillin take 4 pills, 2 g 4caps I34.0 Alysha Liriano, 02/20/2019 500mg 1 hour before M.D. Capsules dental procedure Escitalopram Oxalate Take 1 tablet by 30tabs F32.89 Felicia Camilo MD 2018 mouth daily 10mg Tablets Levothyroxine Sodium Take 1 tablet by 30tabs Ashley Cr, 01/09/2018 mouth daily M.D. 100mcg Tablets Vitamin D 1 every day 30tabs Ashley Cr, 03/21/2017 (Cholecalciferol) M.D. 1000Unit Tablets Metoprolol Tartrate 1/2 by mouth in 180tabs Alysha Liriano, in the morning , M.D. 25mg Tablets 1 tab at night Cpap Not Using G47.33 Unknown Device Kary Aware Vitamin B Complex 1 by mouth every Unknown day Tablets Melatonin 1 cap at bedtime Unknown 5mg Capsules as needed History Medications Amoxicillin/Clavulanate 1 tab by 28tabs J01.90 Ashley 03/27/2019 - Potassium mouth twice Demian Cr 04/10/2019 875-125mg Tablets a day Immunizations CPT Code Status Date Vaccine Lot # [id number] Given 01/30/2019 Influenza Virus Vaccine, Quadrivalent, Split, Preservative Free 21025 Given 01/04/2018 Influenza Virus Vaccine, Quadrivalent, Split, [id number] Preservative Free 51830 Given 01/19/2017 Influenza Virus Vaccine, Quadrivalent, Split, [id number] Preservative Free 86050 Given 06/28/2014 Tdap - Tetanus/Diptheria/Acellular Pertussis 31902 Given 02/26/2014 Flu Vaccine Split Virus Preservative Free For Indiv [id number] Older Vital Signs Date Vital Result Comment 05/25/2019 3:13pm Height 64 inches 5'4" Weight 159.12 lb Heart Rate 67 /min BP Systolic 132 mmHg BP Diastolic 95 mmHg Body Temperature 98.2 F O2 % BldC Oximetry 98 % BMI (Body Mass Index) 27.3 kg/m2 05/25/2019 3:09pm Height 64 inches 5'4" Weight 159.12 lb BMI (Body Mass Index) 27.3 kg/m2 Results Test Acquired Date Facility Test Result H/L Range Note Laboratory test 02/20/2019 [facility] TSH 0.13 mcIU/mL Low 0.34-5.[address] ([place] [address] Stim Horm) [phone] T3 Free 3.10 pg/mL Normal 2.5-3.9 Free T4 (Free Thyroxine) 1.33 ng/dL High 0.61-1.12 Ua Routine 12/21/2018 [facility] Ua Specific [place] 1.010 Ua PH 7 Ua Color yellow Ua Appera clear Ua WBC trace Ua Protein neg Ua Glucose neg Ua Ketones neg Ua Bilirubin neg Ua Urobilinogen neg Ua Nitrite neg Ua Occult Blood trace CBC Auto 11/24/2018 [facility] White Blood 6.2 10^3/uL Normal 3.5-10.[address] [place] [address] [phone] Red Blood Count 4.62 10^6/uL Normal 3.70-4.87 Hemoglobin 13.9 g/dL Normal 12.0-16.0 Hematocrit 41 % Normal 35-47 Mean Corpuscular Volume 89 fL Normal 80-97 Mean Corpuscular Hemoglobin 30 pg Normal 27-31 Mean Corpuscular HGB Conc 34 g/dL Normal 31-36 Red Cell Distribution Width 14 % Normal 10-15 Platelet Count 187 10^3/uL Normal 150-450 Mean Platelet Volume 8.6 fL Normal 7.4-10.4 Abs Neutrophils 3.7 10^3/uL Normal 1.5-7.7 Abs Lymphocytes 1.8 10^3/uL Normal 1.0-4.8 Abs Monocytes 0.6 10^3/uL Normal 0-0.8 Abs Eosinophils 0.1 10^3/uL Normal 0-0.6 Abs Basophils 0.0 10^3/uL Normal 0-0.2 Abs Nucleated RBC 0.0 10^3/uL Granulocyte % 60.5 % Lymphocyte % 28.3 % Monocyte % 9.9 % Eosinophil % 1.0 % Basophil % 0.3 % Nucleated Red Blood Cells % 0.0 Laboratory 11/24/2018 [facility] TSH (Thyroid 4.37 Normal 0.34 -5.60 test finding [address] Stim Horm) mcIU/[place] [address] [phone] Comp Metabolic 11/24/2018 [facility] Sodium 139 mmol/L Normal 135-[address] [place] [address] [phone] Potassium 4.1 mmol/L Normal 3.5-5.0 Chloride 104 mmol/L Normal 101-111 Co2 Carbon Dioxide 27 mmol/L Normal 22-32 Anion Gap 8 mmol/L Normal 2-11 Glucose 85 mg/dL Normal 70-100 Blood Urea Nitrogen 16 mg/dL Normal 6-24 Creatinine 0.72 mg/dL Normal 0.51-0.95 BUN/Creatinine Ratio 22.2 High 8-20 Calcium 9.5 mg/dL Normal 8.6-10.3 Total Protein 7.0 g/dL Normal 6.4-8.9 Albumin 4.5 g/dL Normal 3.2-5.2 Globulin 2.5 g/dL Normal 2-4 Albumin/Globulin Ratio 1.8 Normal 1-3 Total Bilirubin 1.20 mg/dL High 0.2-1.0 Alkaline Phosphatase 68 U/L Normal 34-104 Alt 15 U/L Normal 7-52 Ast 18 U/L Normal 13-39 Egfr Non- 83.5 >60 Egfr 101.0 >60 1 1 Because ethnic data is not always readily available, this report includes an eGFR for both -Americans and non- Americans. The National Kidney Disease Education Program (NKDEP) does not endorse the use of the MDRD equation for patients that are not between the ages of 18 and 70, are , have extremes of body size, muscle mass, or nutritional status, or are non- or non-. According to the National Kidney Foundation, irrespective of diagnosis, the stage of the disease is based on the level of kidney function: Stage Description GFR(mL/min/1.73 m(2)) 1 Kidney damage with normal or decreased GFR 90 2 Kidney damage with mild decrease in GFR 60-89 3 Moderate decrease in GFR 30-59 4 Severe decrease in GFR 15-29 5 Kidney failure <15 (or dialysis) Procedures Date Code Description Status 02/13/2019 38666 Tangential Biopsy Of Skin, Single Lesion Completed 03/10/2018 65884816 Mammogram Completed 04/25/2010 92422971 Colonoscopy Completed Medical Devices Description No Information Available Encounters Type Date Location Provider Dx Diagnosis Office Visit 03/27/2019 [facility] Internal Ashley Cr J01.90 Acute sinusitis, 1:40p Medicine Adrienne Reynolds M.D. unspecified Office Visit 02/20/2019 [facility] Alysha Liriano, I48.0 Paroxysmal atrial 9:00a Of Rafael Arciniega fibrillation I34.0 Nonrheumatic mitral (valve) insufficiency Office Visit 02/20/2019 11:50a [facility] Internal Ashley F32.89 Other specified Medicine - Gail Cr M.D. depressive episodes E03.9 Hypothyroidism, unspecified M51.37 Other intervertebral disc degeneration, lumbosacral region M54.5 Low back pain Office Visit 02/13/2019 10:30a [facility] Dermatology Nikki Marques, L82.1 Other seborrheic MD keratosis D22.71 Melanocytic nevi of right lower limb, including hip D22.5 Melanocytic nevi of trunk L98.9 Disorder of the skin and subcutaneous tissue, unspecified Office Visit 12/21/2018 11:50a [facility] Internal Ashley F32.89 Other specified Medicine - Gail Cr M.D. depressive episodes E03.9 Hypothyroidism, unspecified M54.5 Low back pain Z12.83 Encounter for screening for malignant neoplasm of skin Office Visit 11/23/2018 4:20p [facility] Internal Ayan Guerrier F32.Abran Other specified Medicine Adrienne Reynolds NP depressive episodes Assessments Date Code Description Provider 05/25/2019 M54.5 Low back pain Ayan Guerrier NP 05/25/2019 M25.562 Pain in left knee Ayan Guerrier NP 03/27/2019 J01.90 Acute sinusitis, unspecified Ashley Cr M.D. 02/20/2019 F32.89 Other specified depressive episodes Ashley Cr M.D. 02/20/2019 I48.0 Paroxysmal atrial fibrillation Alysha Liriano M.D. 02/20/2019 E03.9 Hypothyroidism, unspecified Ashley Cr M.D. 02/20/2019 I34.0 Nonrheumatic mitral (valve) insufficiency Alysha Liriano M.D. 02/20/2019 M51.37 Other intervertebral disc degeneration, Ashley Cr M.D. lumbosacral region 02/20/2019 M54.5 Low back pain Ashley Cr M.D. 02/13/2019 L82.1 Other seborrheic keratosis Nikki Marques MD 02/13/2019 D22.71 Melanocytic nevi of right lower limb, Nikki Marques MD including hip 02/13/2019 D22.5 Melanocytic nevi of trunk Nikki Marques MD 02/13/2019 L98.9 Disorder of the skin and subcutaneous tissue, Nikik Marques MD unspecified 12/21/2018 F32.89 Other specified depressive episodes Ashley Cr M.D. 12/21/2018 E03.9 Hypothyroidism, unspecified Ashley Cr M.D. 12/21/2018 M54.5 Low back pain Ashley Cr M.D. 12/21/2018 Z12.83 Encounter for screening for malignant Ashley Cr M.D. neoplasm of skin 11/23/2018 F32.89 Other specified depressive episodes Ayan Guerrier NP Plan of Treatment Future Appointment(s):08/22/2019 10:50 am - Ashley [facility] Ayan Guerrier NPM54.5 Low back painNew Medication:Baclofen 10 mg - take 1/2-1 tab every 8 hours as needed for muscle spasmNew Therapy:Physical TherapyComments:I have referred you to Dr. Reyes as we discussed. I have also renewed you PT referral.Referral:Maddy Reyes MD, Physical Medicine/JdzjbI83.562 Pain in left kneeNew Therapy:Physical TherapyReferral:Maddy Reyes MD, Physical Medicine/Rehab Functional Status Description No Information Available Mental Status Description No Information Available Referrals Refer to Dr Reason for Referral Status Appt Date Maddy Reyes MD Created [address] [place] [address] [phone] Received Partial 02/26/2019 [address] [place] [address] [phone] Nikki Marques MD Closed 02/13/2019 [address], [place] [id number] [phone]
--- OUTSIDE RECORDS SUMMARY | 2019-07-04 17:55 | XMS REPORT | Continuity of Care Document ---
:1960 External Reference #:[id number] Author Name Maria A Jackson M.D. (transmitted by agent of provider Candie Rob) Address [address] [place] [id number] Care Team Providers Name Role Phone Alysha Liriano MD - Cardiovascular Care Team Information Flour Blender Helper Disease Mirian Smith MD - Internal Medicine Care Team Information Flour Blender Helper [phone] Other Physician Practices Care Team Information Flour Blender Helper Unavailable Ashley Cr MD - Internal Care Team Information [employer] Medicine Prakash Skinner MD - Surgery Care Team Information Flour Blender Helper [phone] Problems Active Problems Provider Date Hypothyroidism Mirian Smith M.D., FACSonya Onset: 12/12/2012 Mitral valve disorder Mirian Smith M.D., SAURAV Onset: 12/13/2012 Note: Mild to moderate MR Slow transit constipation Ashley Cr M.D. Onset: 07/21/2015 Insomnia Ashley Cr M.D. Onset: 07/21/2015 Difficulty breathing Mel Preston MD Onset: 09/08/2015 Malaise and fatigue Mel Preston MD Onset: 09/08/2015 Obstructive sleep apnea syndrome Mel Preston MD Onset: 10/16/2015 Rheumatic mitral regurgitation Alysha Liriano M.D. Onset: 04/23/2016 Paroxysmal atrial fibrillation Ashley Cr M.D. Onset: 01/14/2017 Localized, primary osteoarthritis Maria A Jackson M.D. Onset: 06/25/2019 Social History Type Date Description Comments Sex Unknown Tobacco Use Start: Unknown End: Former Cigarette Smoker 1 12 years Unknown Pack Daily Smoking Status Reviewed: 06/25/19 Former Cigarette Smoker 1 12 years Pack [...] Medications SIG Qnty Indications Ordering Date Provider Meloxicam 1 by mouth every 90tabs M25.562 Maria A Jackson, 06/25/2019 15mg Tablets day M.D. Baclofen take 1/2-1 tab 30tabs M54.5 Ayan [...] Tablets Metoprolol Tartrate 1/2 by mouth in 135tabs Alysha Liriano, in the morning , M.D. [...] CPT Code Status Date Vaccine Lot # [id number] Given 01/30/2019 Influenza Virus Vaccine, Quadrivalent, Split, Preservative Free [id number] Given 01/04/2018 Influenza Virus Vaccine, Quadrivalent, Split, [id number] Preservative Free 39765 Given 01/19/2017 Influenza Virus Vaccine, Quadrivalent, Split, [id number] Preservative Free 67443 Given 06/28/2014 Tdap - Tetanus/Diptheria/Acellular Pertussis 30686 Given 02/26/2014 Flu Vaccine Split Virus Preservative Free For Indiv [id number] Older Vital Signs Date Vital Result Comment 06/25/2019 9:09am Height 66 inches 5'6" Weight 164.00 lb Heart Rate 64 /min BP Systolic 118 mmHg BP Diastolic 72 mmHg Respiratory Rate 18 /min Pain Level 8 BMI (Body Mass Index) 26.5 kg/m2 05/25/2019 3:13pm Height 64 inches 5'4" Weight 159.12 lb Heart Rate 67 /min BP Systolic 132 mmHg BP Diastolic 95 mmHg Body Temperature 98.2 F O2 % BldC Oximetry 98 % BMI (Body Mass Index) 27.3 kg/m2 Results Test Acquired Date Facility Test Result H/L Range Note Laboratory test 06/20/2019 [facility] TSH 0.18 mcIU/mL Low 0.34-5.[address] ([place] [address] Stim Horm) [phone] T3 Free 3.20 pg/mL Normal 2.5-3.9 Free T4 (Free Thyroxine) 1.05 ng/dL Normal 0.61-1.12 Laboratory test 02/20/2019 [facility] TSH (Thyroid 0.13 Low 0.34-5.[address] Stim Horm) mcIU/[place] [address] [phone] T3 Free 3.10 pg/mL Normal 2.5-3.9 Free T4 (Free Thyroxine) 1.33 ng/dL High 0.61-1.12 Procedures Date Code Description Status 02/13/2019 93766 Tangential Biopsy Of Skin, Single Lesion Completed 03/10/2018 38514976 Mammogram Completed 04/25/2010 [id number] Colonoscopy Completed Medical Devices Description No Information Available Encounters Type Date Location Provider Dx Diagnosis Office Visit 06/25/2019 [facility] Maria A Jackson, M25.562 [facility] Effusion, left knee M17.12 Unilateral primary osteoarthritis, left knee Office Visit 05/25/2019 2:40p Copy Manager Internal Ayan Fareed, MEDICAL INSURANCE CODING SPECIALIST M54.5 Low back pain Medicine - [facility] M25.562 Pain in left knee Office Visit 03/27/2019 1:40p [facility] Internal Ashley J01.90 [facility]itis [facility] unspecified Office Visit 02/20/2019 9:00a [facility] Alysha Liriano, I48.0 Paroxysmal atrial [facility] M.D. fibrillation I34.0 Nonrheumatic mitral (valve) insufficiency Office Visit 02/20/2019 11:50a [facility] Internal Ashley F32.89 Other [facility] depressive episodes E03.9 Hypothyroidism, unspecified M51.37 Other intervertebral disc degeneration, lumbosacral region M54.5 Low back pain Office Visit 02/13/2019 10:30a [facility] Nikki Marques, L82.1 Other seborrheic MD keratosis D22.71 Melanocytic nevi of right lower limb, including hip D22.5 Melanocytic nevi of trunk L98.9 Disorder of the skin and subcutaneous tissue, unspecified Assessments Date Code Description Provider 06/25/2019 M25.562 Pain in left knee Maria A Jackson M.D. 06/25/2019 M25.462 Effusion, left knee Maria A Jackson M.D. 06/25/2019 M17.12 Unilateral primary osteoarthritis, left knee Maria A Jackson M.D. 05/25/2019 M54.5 Low back pain Ayan Fareed, KATHARINA 05/25/2019 M25.562 Pain in left knee Ayan [...] Disorder of the skin and subcutaneous tissue, Nikki Marques MD unspecified Plan of Treatment Future Appointment(s):08/08/2019 11:00 am - Maria A Jackson M.D. at [facility] at [id number]/18/2019 3:00 pm - Jes Martins NP at [facility]08/22/2019 10:50 am - Ashley Cr M.D. at [facility] Internal Medicine - [facility]06/25/2019 - Maria A Jackson M.D.M25.562 Pain in left kneeNew Medication:Meloxicam 15 mg - 1 by mouth every dayNew Xrays:Knee Left 1-2 VWS, Ordered: 06/25/19New Therapy:Physical TherapyFollow up:Follow up: 6 vzcejJ02.462 Effusion, left kneeM17.12 Unilateral primary osteoarthritis, left knee Functional Status Description No Information Available Mental Status Description No Information Available Referrals Refer to Dr Reason for Referral Status Appt Date Maddy Reyes MD Closed [address] [place] [address] [phone] Received Partial 02/26/2019 [address] [place] [address] [phone]
== END | disposition left against medical advice (07) ==
LOC: UCEAST 17:46
DX: Z53.21 Procedure and treatment not carried out due to patient leaving prior to being seen by health care provider (principal)

== ENCOUNTER 2019-07-04 18:20 | Emergency (ER) | payer OTHER ==
[2019-07-04 21:04] VITALS: BP 121/70
--- NOTE | 2019-07-04 21:34 | UC ---
Dental HPI - HPI Summary HPI Summary: 59-year-old female presents with 2 day history of right lower dental pain. States she has a broken tooth and is scheduled for dental work on Tuesday. Denies fever, chills, trismus, drainage, or facial swelling. - History of Current Complaint Chief Complaint: UCDentalProblem Stated Complaint: DENTAL COMPLAINT Time Seen by Provider: 07/04/19 21:20 Hx Obtained From: Patient Pain Intensity: 10 Dental: 1 - Fractured tooth. No gingival erythema, induration, fluctuance, or drainage noted. - Allergies/Home Medications Allergies/Adverse Reactions: Allergies Allergy/AdvReac Type Severity Reaction Status Date / Time ampicillin Allergy ALOPECIA Verified 07/04/19 21:04 clindamycin Allergy Diarrhea Verified 07/04/19 21:04 Home Medications: Home Medications Multivitamin 1 tab PO DAILY 03/19/15 [History Confirmed 07/04/19] Levothyroxine TAB* [Synthroid 100 MCG TAB*] 100 mcg PO DAILY@0600 #30 tab [Rx Confirmed 07/04/19] Metoprolol Tartrate TAB* [Lopressor TAB*] 25 mg PO BID #60 tab 01/14/17 [Rx Confirmed 07/04/19] Amoxicillin/Clavulanate TAB* [Augmentin TAB 875*] 875 mg PO BID #18 tab [Rx] Escitalopram * [Lexapro 5 mg (NF)] 5 mg PO DAILY 07/04/19 [History Confirmed 03/14] Ibuprofen TAB* [Motrin TAB* 800 MG] 800 mg PO Q6HR 07/04/19 [History Confirmed 07/04/19] PMH/Surg Hx/FS Hx/Imm Hx Endocrine History: Thyroid Disease Cardiovascular History: Hypertension Psychological History: Depression - Surgical History Surgical History: Yes Surgery Procedure, Year, and Place: left ovary removed, appY;2 c-sections; VERICOSE VEIN STRIPPING, GREATER SAPHENOUS - Lt LEG; AT AGE 5 UMBILICAL LESIONS THAT TWISTED HER SMALL INTESTINES. - Family History Known Family History: Positive: Other - Mitral valve leak (mother) - Social History Occupation: Employed Full-time, Retired Lives: With Family Alcohol Use: Occasionally Substance Use Type: None Smoking Status (MU): Former Smoker When Did the Patient Quit Smoking/Using Tobacco: 30 years - Immunization History Most Recent Influenza Vaccination: 2016 Most Recent Tetanus Shot: 2009 Most Recent Pneumonia Vaccination: never Review of Systems All Other Systems Reviewed And Are Negative: Yes Constitutional: Negative: Fever, Chills ENT: Positive: Dental Pain - See HPI Respiratory: Positive: Negative Cardiovascular: Positive: Negative Gastrointestinal: Positive: Negative Genitourinary: Positive: Negative Musculoskeletal: Positive: Negative Neurological/Mental Status: Positive: Negative Is Patient Immunocompromised?: No Physical Exam - Summary Physical Exam Summary: GENERAL APPEARANCE: Well developed, well nourished, alert and cooperative, and appears to be in no acute distress MOUTH/THROAT: Pharynx normal No tonsilar inflammation, swelling, exudate, or lesions. Uvula midline. Fracture of the right lower second bicuspid without gingival erythema, induration, fluctuance, or drainage noted. NECK: Neck supple, non-tender without lymphadenopathy. CARDIAC: Normal S1 and S2. No S3, S4 or murmurs. Rhythm is regular. There is no peripheral edema, cyanosis or pallor. Extremities are warm and well perfused. Capillary refill is less than 2 seconds. Peripheral pulses intact. LUNGS: Clear to auscultation without rales, rhonchi, wheezing or diminished breath sounds. ABDOMEN: Positive bowel sounds. Soft, nondistended, nontender. No guarding or rebound. No masses or hepatosplenomegally. MUSKULOSKELETAL: ROM intact to all extremities. No joint erythema or tenderness. Normal muscular development. Normal gait. SKIN: Skin normal color, texture and turgor with no lesions or eruptions. Triage Information Reviewed: Yes Vital Signs: Initial Vital Signs Temp 98 F 07/04/19 20:58 Pulse 71 07/04/19 20:58 Resp 12 07/04/19 20:58 BP 121/70 07/04/19 20:58 Pulse Ox 99 07/04/19 20:58 Vital Signs Reviewed: Yes Dental Complaint Course/Dx - Course Course Of Treatment: 59-year-old female presents with 2 day history of right lower dental pain. States she has a broken tooth and is scheduled for dental work on Tuesday. Denies fever, chills, trismus, drainage, or facial swelling. Afebrile. Vital signs stable. Patient had a rracture of the right lower second bicuspid without gingival erythema, induration, fluctuance, or drainage noted. We'll place patient on a course of Augmentin to treat for a possible infection. She is to use [id number] analgesics as needed for pain. She is to keep her appointment with her dentist as scheduled on Tuesday. Anticipatory guidance and warning symptoms reviewed with the patient. Verbalizes understanding and agrees with plan of care. - Differential Dx/Diagnosis Differential Diagnosis/Dx: Dental Abscess, Dental Caries, Fractured Tooth, Gingivitis, Odontogenic Pain, Peridontic Disease Provider Diagnosis: Pain, dental Discharge ED - Sign-Out/Discharge Documenting (check all that apply): Patient Departure All imaging exams completed and their final reports reviewed: No Studies - Discharge Plan Condition: Stable Disposition: HOME Prescriptions: Amoxicillin/Clavulanate TAB* [Augmentin TAB 875*] 875 mg PO BID #18 tab Patient Education Materials: Toothache (ED) Referrals: Ashley Cr MD [Primary Care Provider] - Additional Instructions: Start Augmentin 875 mg 1 tablet twice a day for 10 days. We gave you the first dose in the clinic. Take acetaminophen (Tylenol) or ibuprofen (Advil, Motrin) according to directions as needed for pain. Be sure to rinse your mouth out with a warm salt water solution after every time you eat to remove any debris. Keep your appointment with your dentist as scheduled on Tuesday. Seek immediate medical attention in the emergency room if you develop fever greater than 100.5 F, you are unable to open of close your mouth, are unable to swallow, have difficulty breathing, or any worsening of symptoms. - Billing Disposition and Condition Condition: STABLE Disposition: Home
[2019-07-04] MEDS ORDERED: Amoxicillin/Clavulanate TAB* 875 MG PO ONE ×2 (21:41)
== END 2019-07-04 21:54 | disposition home or self-care (01) ==
LOC: UCEAST 18:20
DX: K08.89 Other specified disorders of teeth and supporting structures (principal); I10 Essential (primary) hypertension; E07.89 Other specified disorders of thyroid; F32.9 Major depressive disorder, single episode, unspecified; Z88.1 Allergy status to other antibiotic agents; Z88.0 Allergy status to penicillin; Z87.891 Personal history of nicotine dependence; Z79.899 Other long term (current) drug therapy; Z79.890 Hormone replacement therapy
CPT/HCPCS: 99212; A9270-GY; G0463